=== PATIENT | female | born 1975 | race Two or more races ===

== ENCOUNTER 2017-06-26 15:42 | Emergency (ER) | payer MEDICAID ==
[~2017-06-26] VITALS: Ht 167.6 cm; Wt 65.8 kg
[2017-06-26 16:49] VITALS: BP 157/70
[2017-06-26] MEDS ORDERED: diphenhdrAMINE HCL 50 MG/1 ML VL IM ONE (17:30)
== END 2017-06-26 17:51 | disposition home or self-care (01) ==
LOC: EDBD 15:42 → ER 15:42 → EDUNIT# 15:42 → ER 17:51
DX: F41.1 Generalized anxiety disorder (principal)
CPT/HCPCS: 96372; 99284; J1200

== ENCOUNTER 2022-02-28 13:12 | Emergency (ER) | payer MEDICAID ==
[~2022-02-28] VITALS: Ht 167.6 cm; Wt 74.8 kg
[2022-02-28 13:12] VITALS: BP 126/81
[2022-02-28 14:28] LABS: Urine Bacteria NONE SEEN /hpf (None Seen); Urine Blood Negative /uL (Negative); Urine Specific Gravity 1.013 (1.001-1.035); Urine WBC 1 /hpf (0 - 5)
[2022-02-28 14:56] LABS: Eosinophils # (auto) 0.1 10 ^3/uL (0-0.8); Monocytes # (auto) 0.4 10 ^3/uL (0-1.3); Red Cell Distribution Width 18.3 % (11.8-14.3); White Blood Cell 8.4 10^3/uL (4.4-10.8)
[2022-02-28 14:59] LABS: Basophils # (auto) 0.1 10 ^3/uL (0-0.2); Basophils % (auto) 0.9 % (0.0-2.0); Eosinophils % (auto) 0.9 % (0.0-7.0); Hematocrit 37.1 % (36.0-46.0); Hemoglobin 11.2 g/dL (12.2-16.2); Lymphocytes # (auto) 1.5 10 ^3/uL (0.4-5.4); Lymphocytes % (auto) 17.7 % (10.0-50.0); Mean Corpuscular Hemoglobin 20.9 pg (28.0-32.0); Mean Corpuscular Hgb Conc. 30.3 g/dL (32.0-36.0); Monocytes % (auto) 5.1 % (0.0-12.0); Neutrophils # (auto) 6.4 10 ^3/uL (1.6-8.6); Neutrophils % (auto) 75.4 % (37.0-80.0); Red Blood Cells 5.37 10^6/uL (4.0-5.20)
[2022-02-28 15:16] LABS: Albumin 3.7 g/dL (3.4-5.0); Calcium 8.9 mg/dL (8.5-10.1); Potassium 3.9 mmol/L (3.5-5.1)
[2022-02-28 15:21] LABS: Bilirubin, Total 0.2 mg/dL (0.2-1.0); Total Protein 7.6 g/dL (6.4-8.2)
== END 2022-02-28 18:38 | disposition left against medical advice (07) ==
LOC: EDBD 13:12 → ER 13:12
DX: R10.9 Unspecified abdominal pain (principal); Z53.21 Procedure and treatment not carried out due to patient leaving prior to being seen by health care provider
CPT/HCPCS: 36415; 74176; 80053; 81001; 81025; 82150; 83690; 83735; 84702; 85025